=== PATIENT | male | born 1980 | race African-American/Black ===

== ENCOUNTER 2018-07-08 18:02 | Emergency (ER) | payer OTHER, SELFPAY ==
[2018-07-08 19:03] LABS: #Basophils 0.1 thou/uL (0.0-0.2); #Eosinphils 0.1 thou/uL (0.0-0.7); #Lymphocytes 1.9 thou/uL (1.20-3.40); #Monocytes 0.4 thou/uL (0.11-0.59); #Neutrophils 2.5 thou/uL (1.40-6.50); %Eosinophils 1.4 % (0.0-10.0); %Lymphocytes 39.1 % (21.0-51.0); %Monocytes 7.8 % (0.0-10.0); %Neutrophils 50.8 % (42.0-75.0); Hemoglobin 15.8 g/dL (14.0-18.0); Mean Corpuscular HGB CONC 34.7 g/dL (32.0-36.0); Mean Corpuscular Hemoglobin 33.4 pg (27.0-31.0); Mean Corpuscular Volume 96.4 fL (78.0-98.0); Mean Platelet Volume 6.6 fL (7.4-10.4); Platelet Count 218 thou/uL (130-400); RBC Distribution Width 11.3 % (11.5-14.5); Red Blood Cell (RBC) Count 4.74 mill/uL (4.70-6.10); White Blood Cell (WBC) Count 4.9 thou/uL (4.8-10.8)
[2018-07-08] MEDS ORDERED: Multivitamins, Adult 10 ML, Thiamine HCl 100 MG, Folic Acid 1 MG in Dextrose 5 %-0.45 %... IV ONE (19:15)
[2018-07-08 19:17] LABS: Acetaminophen Less than 6.0 mcg/mL (10.0-30.0); Alcohol 282 mg/dL (Less than 10); Lipase 47 U/L (8-78); Salicylate Less than 8.0 mg/dL (15.0-30.0)
[2018-07-08 19:18] LABS: ALT (SGPT) 86 U/L (8-55); AST (SGOT) 110 U/L (5-34); Albumin 4.2 g/dL (3.5-5.0); Alkaline Phosphatase 69 U/L (40-150); Anion Gap 15 mmol/L (10-20); BUN (Urea Nitrogen) Less than 4 mg/dL (8.9-20.6); CK (CPK) 412 U/L (30-200); Calc. Creatinine Clearance 0 mL/min (70-130); Carbon Dioxide 22 mmol/L (22-29); Chloride 107 mmol/L (98-107); Estimated GFR-MDRD Greater than 90; Globulin 3.4 g/dL (2.4-3.5); Glucose 160 mg/dL (70-105); Potassium 3.3 mmol/L (3.5-5.1); Protein, Total 7.6 g/dL (6.0-8.3); Sodium 141 mmol/L (136-145)
[2018-07-08 19:22] LABS: CKMB 3.2 ng/mL (0-6.6); Troponin I Less than 0.010 ng/mL (< 0.028)
--- NOTE | 2018-07-08 19:41 | RAD ---
FRONTAL RADIOGRAPH CHEST: 07/08/2018 HISTORY: Altered mental status. COMPARISON: 08/15/2015 FINDINGS: The lungs are clear. The heart and mediastinal contour is unremarkable. IMPRESSION: No acute findings. POS: [facility]
--- NOTE | 2018-07-08 19:56 | CT ---
CT BRAIN PERFORMED WITHOUT CONTRAST ENHANCEMENT: HISTORY: Altered mental status. Seizure. FINDINGS: The ventricular and cisternal system is within normal limits. There are no signs of intracerebral he morrhage or extraaxial fluid collection. The mastoid air cells are clear. There is minimal mucosal change in the ethmoid air cells. IMPRESSION: No acute intracranial abnormalities. [place]: [facility] [place]
[2018-07-08] MEDS ORDERED: levETIRAcetam 500 MG TAB PO SCH (20:15)
== END 2018-07-08 22:28 | disposition home or self-care (01) ==
LOC: ERS 18:02
DX: R56.9 Unspecified convulsions (principal); F10.129 Alcohol abuse with intoxication, unspecified; E11.9 Type 2 diabetes mellitus without complications; I10 Essential (primary) hypertension; F17.210 Nicotine dependence, cigarettes, uncomplicated; Z79.899 Other long term (current) drug therapy; Z79.84 Long term (current) use of oral hypoglycemic drugs; Y90.8 Blood alcohol level of 240 mg/100 ml or more
CPT/HCPCS: 36415; 70450; 71045; 80053; 80307; 82553; 83690; 84146; 84443; 84484; 85025; 93005; 96365; 96366; J3411; J7042